=== PATIENT | male | born 1990 | race Two or more races ===

== ENCOUNTER 2018-11-23 22:09 | Emergency (ER) | payer MEDICAID, OTHER ==
[~2018-11-23] VITALS: Ht 177.8 cm; Wt 102.1 kg
[~2018-11-23 22:09] MED LIST: BACITRACIN1 EAC1 TP; KEFLEX500 MG ORAL; NKM; NORCO 5-325 TA1 EACH ORAL
--- NOTE | 2018-11-23 22:25 | NUR ---
ED Nurse Note: walkin patient compaints of back and neck muscle pain x 1 week.
[2018-11-23 22:26] VITALS: BP 122/79
[2018-11-23] MEDS ORDERED: Ketorolac 60mg Inj IM ONE (22:30)
[2018-11-23] MEDS ORDERED: IBUPROFEN600 MG ORAL (22:35)
--- NOTE | 2018-11-23 22:36 | Emergency Room Report ---
History of Present Illness General Chief Complaint: Back Pain-No Injury Source: Patient Present Illness HPI Is a 28-year-old male with no past medical history. He presents with chief complaint of back pain. No trauma. Onset about 4 hours ago. He said he was angry and was pacing up and down when he developed sharp pain in his upper back between his shoulder blade area. It radiates to the right side. Pain is spastic in nature. Comes and go. 10 out of 10 when it happened. No fever chills but no focal deficit. Denies any other complaint. Allergies: Coded Allergies: NO KNOWN ALLERGIES (Verified Allergy, Unknown, 06/15/15) Patient History Past Medical History: see triage record, old chart reviewed Past Surgical History: none Pertinent Family History: none Social History: Denies: smoking Immunizations: other Reviewed Nursing Documentation: PMH: Agreed; PSxH: Agreed Nursing Documentation-PMH Past Medical History: No Stated History Review of Systems Eye: Denies: eye pain, blurred vision ENT: Denies: ear pain, nose congestion, throat swelling Respiratory: Denies: cough, shortness of breath Cardiovascular: Denies: chest pain, palpitations Gastrointestinal: Denies: abdominal pain, diarrhea, nausea, vomiting Musculoskeletal: Reports: back pain; Denies: joint pain Skin: Denies: rash Neurological: Denies: headache, numbness Endocrine: Denies: increased thirst, increased urine Hematologic/Lymphatic: Denies: easy bruising All Other Systems: negative except mentioned in HPI Physical Exam Vital Signs Date Time Temp Pulse Resp B/P (MAP) Pulse Ox O2 Delivery O2 Flow Rate FiO2 11/23/18 22:13 97.7 85 20 122/79 (93) 97 Room Air Vitals normal Sp02 EP Interpretation: reviewed, normal General Appearance: well appearing, no apparent distress, alert Head: normocephalic, atraumatic Eyes: bilateral eye PERRL, bilateral eye EOMI ENT: hearing grossly normal, normal pharynx Neck: full range of motion, supple, no meningismus Respiratory: chest non-tender, lungs clear, normal breath sounds Cardiovascular #1: regular rate, rhythm, no murmur Gastrointestinal: normal bowel sounds, non tender, no mass, no organomegaly, no bruit, non-distended Musculoskeletal: back normal, gait/station normal, normal range of motion Psychiatric: mood/affect normal Skin: warm/dry Medical Decision Making Diagnostic Impression: Primary Impression: Back pain Qualified Codes: M54.6 - Pain in thoracic spine ER Course This patient presents with upper back pain. Most likely musculoskeletal in nature with muscle spasm. No evidence of cauda equina syndrome, spinal epidural abscess or neoplastic process. Last Vital Signs Date Time Temp Pulse Resp B/P (MAP) Pulse Ox O2 Delivery O2 Flow Rate FiO2 11/23/18 22:26 97.7 89 20 122/79 97 Room Air Status: improved Disposition: HOME, SELF-CARE Condition: Stable Scripts Ibuprofen* (MOTRIN*) 600 Mg Tablet 600 MG ORAL THREE TIMES A DAY, #30 TAB 0 Refills Prov: Lenard Carbajal MD 11/23/18 Patient Instructions: Back Pain, Adult Additional Instructions: Follow-up with your Dr. in 7 days. Return if worse. Lenard Carbajal MD Nov 23, 2018 22:36
[2018-11-23 22:39] VITALS: BP 122/79
--- NOTE | 2018-11-23 22:39 | NUR ---
ED Nurse Note: Patient cleared for discharge, no s/s of distresss. Patient verbalized understanding of discharge instructions. PAtient departed with all personal belongings, id band removed.
== END 2018-11-23 22:39 | disposition home or self-care (01) ==
LOC: EMR 22:28
DX: M54.6 Pain in thoracic spine (principal)
CPT/HCPCS: 99282